=== PATIENT | male | born 1990 | race Caucasian/White ===

== ENCOUNTER 2019-04-05 04:37 | Inpatient (IN) | payer MEDICAID, OTHER ==
[~2019-04-05] VITALS: Ht 185.4 cm; Wt 87.0 kg
[2019-04-05] VITALS (9 sets, daily range): BP systolic 100–148; BP diastolic 60–97
[2019-04-05] MEDS ORDERED: OLAN10TA3 PO (05:03)
[2019-04-05] MEDS ORDERED: HYD25 PO (05:03)
[2019-04-05] MEDS ORDERED: METH10SO PO (05:03)
[2019-04-05] MEDS ORDERED: GABA-531 PO (05:03)
[2019-04-05] MEDS ORDERED: BUPR100 PO (05:03)
[2019-04-05] MEDS ORDERED: DIPH25TA19 PO (05:03)
[2019-04-05 05:50] LABS: EOSINOPHILS % (AUTO) 10.2 % (1.0-6.0); HEMATOCRIT 41.5 % (41-53); HEMOGLOBIN 14.5 g/dL (13.5-17.5); LYMPHOCYTES # (AUTO) 1.2 K/uL (1.0-4.8); LYMPHOCYTES % (AUTO) 21.9 % (22.0-44.0); MEAN CORPUSCULAR HEMOGLOBIN 29.4 pg (26.0-34.0); MEAN CORPUSCULAR HGB CONC 34.8 G/dL (31.0-37.0); MEAN CORPUSCULAR VOLUME 85 fL (80-100); MONOCYTES # (AUTO) 0.7 K/uL (0.1-1.0); MONOCYTES % (AUTO) 13.5 % (2.0-9.0); NEUTROPHILS # (AUTO) 2.8 K/uL (1.8-7.7); NEUTROPHILS % (AUTO) 53.4 % (40.0-70.0); PLATELET COUNT (AUTO) 185 K/uL (150-450); RED BLOOD CELL COUNT(AUTO) 4.92 MIL/uL (4.50-5.90)
[2019-04-05 05:59] LABS: ANION GAP 9 mmol/L (8-16); CALCIUM, TOTAL 9.4 mg/dL (8.8-10.5); CARBON DIOXIDE 28 mmol/L (22-29); CHLORIDE 104 mmol/L (98-107); GLOMERULAR FILTR. RATE CALC > 60 mL/min (>60); GLUCOSE,RANDOM 116 mg/dL (70-110); POTASSIUM 3.9 mmol/L (3.5-5.1); SODIUM SERUM 141 mmol/L (136-145); UREA NITROGEN, BLOOD 21 mg/dL (7-18)
[2019-04-05 06:01] LABS: AMPHET/METH SCREEN,URINE POSITIVE (NEGATIVE); BARBITURATE SCREEN, URINE NEGATIVE (NEGATIVE); BENZODIAZEPINES SCREEN,URINE NEGATIVE (NEGATIVE); CANNABINOID SCREEN,URINE NEGATIVE (NEGATIVE); COCAINE SCREEN,URINE NEGATIVE (NEGATIVE); METHADONE SCREEN, URINE NEGATIVE (NEGATIVE); OPIATE SCREEN,URINE POSITIVE (NEGATIVE); PHENCYCLIDINE SCREEN,URINE NEGATIVE (NEGATIVE)
[2019-04-05 06:04] LABS: ALANINE AMINOTRANSFERASE 124 U/L (12-78); ALBUMIN 3.7 g/dL (3.4-5.0); ALKALINE PHOSPHATASE 84 U/L (46-116); ASPARTATE AMINOTRANSFERASE 77 U/L (15-37); BILIRUBIN,TOTAL 0.8 mg/dL (0.1-1.0); TOTAL PROTEIN, SERUM 6.7 g/dL (6.4-8.2)
[2019-04-05] MEDS ORDERED: HALOPERIDOL 5 MG TABLET PO ONE (08:30)
[2019-04-05] MEDS ORDERED: LORazepam 1 MG TABLET PO ONE (08:30)
[2019-04-05] MEDS ORDERED: MIRT15TA6 PO (10:58)
[2019-04-05] MEDS ORDERED: MAG HYDROX/AL HYDROX/SIMETH ES 30 ML SUSPENSION UDCUP PO PRN (14:45)
[2019-04-05] MEDS ORDERED: CloNIDine HCL 0.1 MG TABLET PO PRN (14:45)
[2019-04-05] MEDS ORDERED: INFLUENZA VIRUS VACCINE QVS 2019-20 (3YR+)/PF 60 MCG/0.5 ML SYRINGE IM ONE (14:45)
[2019-04-05] MEDS ORDERED: HydrOXYzine PAMOATE 50 MG CAPSULE PO PRN (14:45)
[2019-04-05] MEDS ORDERED: IBUPROFEN 600 MG TABLET PO PRN (14:45)
[2019-04-05] MEDS: CloNIDine HCL 0.1 MG TABLET PO SCH ×2 (16:31→22:25)
[2019-04-05] MEDS: LORazepam 2 MG TABLET PO PRN (16:34)
[2019-04-06] VITALS (7 sets, daily range): BP systolic 105–137; BP diastolic 64–79
[2019-04-06] MEDS: CloNIDine HCL 0.1 MG TABLET PO SCH ×4 (06:28→21:34)
[2019-04-06] MEDS ORDERED: PETROLATUM,WHITE 28 GM JELLY TP PRN (07:45)
[2019-04-06] MEDS ORDERED: ACETAMINOPHEN 325 MG TABLET PO PRN (07:45)
[2019-04-06] MEDS ORDERED: CloNIDine HCL 0.1 MG TABLET PO PRN (07:45)
[2019-04-06] MEDS ORDERED: GuaiFENesin/D-METHORPHAN [SUGAR-FREE] 200-20MG/10 ML SYRUP UDCUP PO PRN (07:45)
[2019-04-06] MEDS ORDERED: DOCUSATE SODIUM 100 MG CAPSULE PO PRN (07:45)
[2019-04-06] MEDS ORDERED: MAG HYDROX/AL HYDROX/SIMETH ES 30 ML SUSPENSION UDCUP PO PRN (07:45)
[2019-04-06] MEDS ORDERED: MAGNESIUM HYDROXIDE SUSPENSION 30 ML UDCUP PO PRN (07:45)
[2019-04-06] MEDS ORDERED: ONDANSETRON HCL 4 MG TABLET PO PRN (07:45)
[2019-04-06] MEDS ORDERED: LOPERAMIDE HCL 2 MG CAPSULE PO PRN (07:45)
[2019-04-06] MEDS ORDERED: ALBUTEROL SULFATE HFA 90 MCG/PUFF 8 GM INHALER IH PRN (07:45)
[2019-04-06 08:27] LABS: CHOL/HDL RATIO 3.4 (4.2-7.3)
[2019-04-06] MEDS: LORazepam 2 MG TABLET PO PRN ×3 (08:38→21:35)
[2019-04-06] MEDS: HALOPERIDOL 5 MG TABLET PO PRN (08:39)
[2019-04-06] MEDS: BuPROPion HCL XL 150 MG ER TABLET PO SCH (10:01)
[2019-04-06] MEDS: METHADONE HCL 10 MG TABLET PO SCH (10:02)
[2019-04-06] MEDS: OLANZapine 10 MG TABLET PO SCH (21:35)
[2019-04-07 03:50] VITALS: BP 113/62
[2019-04-07] MEDS: CloNIDine HCL 0.1 MG TABLET PO SCH ×4 (06:25→21:48)
[2019-04-07 08:00] VITALS: BP 102/60
[2019-04-07] MEDS: METHADONE HCL 10 MG TABLET PO SCH (08:15)
[2019-04-07] MEDS: BuPROPion HCL XL 150 MG ER TABLET PO SCH (08:15)
[2019-04-07] MEDS: NICOTINE 14 MG/24 HOUR PATCH TD PRN (08:34)
[2019-04-07] MEDS: LORazepam 2 MG TABLET PO PRN ×3 (08:34→20:17)
[2019-04-07 16:26] VITALS: BP 119/64
[2019-04-07] MEDS: OLANZapine 10 MG TABLET PO SCH (20:16)
[2019-04-07 21:31] VITALS: BP 122/78
[2019-04-08 02:06] VITALS: BP 120/80
[2019-04-08 02:09] VITALS: BP 120/80
[2019-04-08 06:13] VITALS: BP 120/63
[2019-04-08] MEDS: CloNIDine HCL 0.1 MG TABLET PO SCH ×4 (06:13→20:39)
[2019-04-08] MEDS: BuPROPion HCL XL 150 MG ER TABLET PO SCH (08:11)
[2019-04-08] MEDS: METHADONE HCL 10 MG TABLET PO SCH (08:11)
[2019-04-08 08:40] VITALS: BP 118/63
[2019-04-08 08:42] VITALS: BP 118/63
[2019-04-08] MEDS: NICOTINE 14 MG/24 HOUR PATCH TD PRN (10:55)
[2019-04-08] MEDS: LORazepam 2 MG TABLET PO PRN ×2 (16:31→23:48)
[2019-04-08 17:00] VITALS: BP 100/65
[2019-04-08] MEDS: OLANZapine 10 MG TABLET PO SCH (20:21)
[2019-04-09] VITALS: BP 112/62
[2019-04-09 06:35] VITALS: BP 139/75
[2019-04-09] MEDS: CloNIDine HCL 0.1 MG TABLET PO SCH ×4 (06:35→21:41)
[2019-04-09] MEDS: METHADONE HCL 10 MG TABLET PO SCH (08:43)
[2019-04-09] MEDS: BuPROPion HCL XL 150 MG ER TABLET PO SCH (08:43)
[2019-04-09] MEDS: LORazepam 2 MG TABLET PO PRN ×2 (08:44→16:53)
[2019-04-09 09:44] VITALS: BP 126/76
[2019-04-09 09:46] VITALS: BP 126/76
[2019-04-09 16:30] VITALS: BP 116/67
[2019-04-09] MEDS: OLANZapine 10 MG TABLET PO SCH (19:53)
[2019-04-09] MEDS: HALOPERIDOL 5 MG TABLET PO PRN (19:54)
[2019-04-10 00:20] VITALS: BP 112/63
[2019-04-10 06:15] VITALS: BP 105/75
[2019-04-10] MEDS: CloNIDine HCL 0.1 MG TABLET PO SCH (06:19)
[2019-04-10] MEDS: METHADONE HCL 10 MG TABLET PO SCH (08:22)
[2019-04-10] MEDS: BuPROPion HCL XL 150 MG ER TABLET PO SCH (08:22)
[2019-04-10 10:33] VITALS: BP 124/65
[2019-04-10] MEDS: HALOPERIDOL 5 MG TABLET PO PRN ×2 (16:08→20:19)
[2019-04-10] MEDS: LORazepam 2 MG TABLET PO PRN ×2 (16:08→20:19)
[2019-04-10 16:15] VITALS: BP 120/64
[2019-04-10] MEDS: OLANZapine 10 MG TABLET PO SCH (20:20)
[2019-04-11] MEDS: BuPROPion HCL XL 150 MG ER TABLET PO SCH (08:15)
[2019-04-11] MEDS: METHADONE HCL 10 MG TABLET PO SCH (08:16)
[2019-04-11 08:38] VITALS: BP 127/58
[2019-04-11] MEDS: LORazepam 2 MG TABLET PO PRN ×2 (13:52→19:42)
[2019-04-11 17:01] VITALS: BP 128/75
[2019-04-11] MEDS: HALOPERIDOL 5 MG TABLET PO PRN (19:42)
[2019-04-11] MEDS: OLANZapine 10 MG TABLET PO SCH (20:12)
[2019-04-12 00:30] VITALS: BP 120/90
[2019-04-12] MEDS: METHADONE HCL 10 MG TABLET PO SCH (08:38)
[2019-04-12] MEDS: BuPROPion HCL XL 150 MG ER TABLET PO SCH (08:39)
[2019-04-12] MEDS: LORazepam 2 MG TABLET PO PRN ×3 (08:40→20:35)
[2019-04-12 08:43] VITALS: BP 129/74
[2019-04-12 16:15] VITALS: BP 113/74
[2019-04-12] MEDS: OLANZapine 10 MG TABLET PO SCH (20:07)
[2019-04-12] MEDS: HALOPERIDOL 5 MG TABLET PO PRN (20:35)
[2019-04-13 01:45] VITALS: BP 111/81
[2019-04-13] MEDS: METHADONE HCL 10 MG TABLET PO SCH (08:09)
[2019-04-13] MEDS: BuPROPion HCL XL 150 MG ER TABLET PO SCH (08:09)
[2019-04-13] MEDS: LORazepam 2 MG TABLET PO PRN ×2 (08:55→16:07)
[2019-04-13 17:02] VITALS: BP 113/64
[2019-04-13] MEDS: ZOLPIDEM TARTRATE 10 MG TABLET PO PRN (20:01)
[2019-04-13] MEDS: OLANZapine 10 MG TABLET PO SCH (20:01)
[2019-04-14] MEDS: BuPROPion HCL XL 150 MG ER TABLET PO SCH (08:09)
[2019-04-14] MEDS: METHADONE HCL 10 MG TABLET PO SCH (08:09)
[2019-04-14] MEDS: LORazepam 2 MG TABLET PO PRN (08:10)
[2019-04-14 09:43] VITALS: BP 129/64
[2019-04-14] MEDS: HALOPERIDOL 5 MG TABLET PO PRN (16:57)
[2019-04-14] MEDS: LORazepam 1 MG TABLET PO PRN (16:57)
[2019-04-14] MEDS: IBUPROFEN 400 MG TABLET PO PRN (16:57)
[2019-04-14 19:32] VITALS: BP 123/67
[2019-04-14] MEDS: OLANZapine 10 MG TABLET PO SCH (20:06)
[2019-04-15 01:45] VITALS: BP 128/83
[2019-04-15] MEDS: LORazepam 1 MG TABLET PO PRN ×3 (01:49→16:49)
[2019-04-15] MEDS: HALOPERIDOL 5 MG TABLET PO PRN (01:49)
[2019-04-15] MEDS: METHADONE HCL 10 MG TABLET PO SCH (08:16)
[2019-04-15] MEDS: BuPROPion HCL XL 150 MG ER TABLET PO SCH (08:16)
[2019-04-15 08:50] VITALS: BP 126/81
[2019-04-15] MEDS: NICOTINE 14 MG/24 HOUR PATCH TD PRN (13:06)
[2019-04-15 16:30] VITALS: BP 125/65
[2019-04-15 16:57] VITALS: BP 123/70
[2019-04-15] MEDS: OLANZapine 10 MG TABLET PO SCH (20:09)
[2019-04-16 02:40] VITALS: BP 122/68
[2019-04-16] MEDS: BuPROPion HCL XL 150 MG ER TABLET PO SCH (08:13)
[2019-04-16] MEDS: METHADONE HCL 10 MG TABLET PO SCH (08:14)
[2019-04-16 08:30] VITALS: BP 144/83
[2019-04-16] MEDS: NICOTINE 14 MG/24 HOUR PATCH TD PRN (09:56)
[2019-04-16] MEDS: IBUPROFEN 400 MG TABLET PO PRN (16:20)
[2019-04-16] MEDS: LORazepam 1 MG TABLET PO PRN (16:21)
[2019-04-16 17:46] VITALS: BP 116/67
[2019-04-16] MEDS: OLANZapine 10 MG TABLET PO SCH (20:36)
[2019-04-16] MEDS: ZOLPIDEM TARTRATE 10 MG TABLET PO PRN (22:16)
[2019-04-17] MEDS: METHADONE HCL 10 MG TABLET PO SCH (07:57)
[2019-04-17] MEDS: BuPROPion HCL XL 150 MG ER TABLET PO SCH (07:58)
[2019-04-17] MEDS ORDERED: BUPR450T3 PO (08:19)
[2019-04-17] MEDS ORDERED: OLAN10TA3 PO ×2 (08:20→08:25)
[2019-04-17] MEDS ORDERED: BUPR75 PO (08:25)
[2019-04-19] MEDS ORDERED: METHADONE HCL 10 MG TABLET PO SCH (09:00)
[2019-04-22] MEDS ORDERED: METHADONE HCL 10 MG TABLET PO SCH (09:00)
[2019-04-25] MEDS ORDERED: METHADONE HCL 10 MG TABLET PO SCH (09:00)
== END 2019-04-17 10:15 | disposition home or self-care (01) | DRG 885 ==
LOC: EMS 04:37 → 3EI 10:56
PROVIDERS: ADMIT Psychiatry & Neurology Child & Adolescent Psychiatry; ATTEND Psychiatry & Neurology Child & Adolescent Psychiatry
DX: F25.0 Schizoaffective disorder, bipolar type (principal); F11.20 Opioid dependence, uncomplicated; R45.851 Suicidal ideations; F17.200 Nicotine dependence, unspecified, uncomplicated; I10 Essential (primary) hypertension; F19.10 Other psychoactive substance abuse, uncomplicated; Z81.3 Family history of other psychoactive substance abuse and dependence; Z71.6 Tobacco abuse counseling; Z91.14 Patient's other noncompliance with medication regimen
CPT/HCPCS: 87081; G0480

== ENCOUNTER 2019-06-01 11:16 | Inpatient (IN) | payer MEDICAID ==
[~2019-06-01] VITALS: Ht 185.4 cm; Wt 84.5 kg
[~2019-06-01 11:16] MED LIST: BUPR450T3 PO; OLAN10TA3 PO
[2019-06-01 13:54] VITALS: BP 122/68
[2019-06-01] MEDS: LORazepam 2 MG TABLET PO PRN ×2 (14:56→20:07)
[2019-06-01 16:00] VITALS: BP 134/78
[2019-06-02 00:08] VITALS: BP 115/60
[2019-06-02] MEDS: HALOPERIDOL 5 MG TABLET PO PRN ×2 (03:02→20:14)
[2019-06-02] MEDS: LORazepam 2 MG TABLET PO PRN ×3 (03:02→17:11)
[2019-06-02] MEDS: ZOLPIDEM TARTRATE 10 MG TABLET PO PRN ×2 (03:02→20:14)
[2019-06-02 08:20] VITALS: BP 108/64
[2019-06-02] MEDS: OLANZapine 10 MG TABLET PO SCH (09:02)
[2019-06-02] MEDS: BuPROPion HCL XL 150 MG ER TABLET PO SCH (09:10)
[2019-06-02] MEDS ORDERED: BuPROPion HCL XL 150 MG ER TABLET PO SCH (09:45)
[2019-06-02] MEDS ORDERED: NICOTINE 14 MG/24 HOUR PATCH TD PRN (13:15)
[2019-06-02] MEDS ORDERED: DOCUSATE SODIUM 100 MG CAPSULE PO PRN (13:15)
[2019-06-02] MEDS ORDERED: MAGNESIUM HYDROXIDE SUSPENSION 30 ML UDCUP PO PRN (13:15)
[2019-06-02] MEDS ORDERED: ALBUTEROL SULFATE HFA 90 MCG/PUFF 8 GM INHALER IH PRN (13:15)
[2019-06-02] MEDS ORDERED: IBUPROFEN 400 MG TABLET PO PRN (13:15)
[2019-06-02] MEDS ORDERED: CloNIDine HCL 0.1 MG TABLET PO PRN (13:15)
[2019-06-02] MEDS ORDERED: GuaiFENesin/D-METHORPHAN [SUGAR-FREE] 200-20MG/10 ML SYRUP UDCUP PO PRN (13:15)
[2019-06-02] MEDS ORDERED: ONDANSETRON HCL 4 MG TABLET PO PRN (13:15)
[2019-06-02] MEDS ORDERED: MAG HYDROX/AL HYDROX/SIMETH ES 30 ML SUSPENSION UDCUP PO PRN (13:15)
[2019-06-02] MEDS ORDERED: ACETAMINOPHEN 325 MG TABLET PO PRN (13:15)
[2019-06-02] MEDS ORDERED: LOPERAMIDE HCL 2 MG CAPSULE PO PRN (13:15)
[2019-06-02] MEDS ORDERED: PETROLATUM,WHITE 28 GM JELLY TP PRN (13:15)
[2019-06-02 16:00] VITALS: BP 124/68
[2019-06-02] MEDS ORDERED: OLANZapine 10 MG TABLET PO SCH (21:00)
[2019-06-03 05:39] VITALS: BP 114/85
[2019-06-03 07:59] LABS: APPEARANCE,URINE CLEAR (CLEAR); BILIRUBIN,URINE NEGATIVE (NEGATIVE); GLUCOSE, URINE (UA) NEGATIVE (NEGATIVE); KETONES,URINE NEGATIVE (NEGATIVE); LEUKOCYTE ESTERASE ,URINE NEGATIVE (NEGATIVE); NITRATE,URINE NEGATIVE (NEGATIVE); OCCULT BLOOD,URINE NEGATIVE (NEGATIVE); PROTEIN,URINE NEGATIVE (NEGATIVE)
[2019-06-03 08:02] VITALS: BP 126/71
[2019-06-03 08:05] LABS: AMPHET/METH SCREEN,URINE POSITIVE (NEGATIVE); BARBITURATE SCREEN, URINE NEGATIVE (NEGATIVE); BENZODIAZEPINES SCREEN,URINE NEGATIVE (NEGATIVE); CANNABINOID SCREEN,URINE NEGATIVE (NEGATIVE); COCAINE SCREEN,URINE NEGATIVE (NEGATIVE); METHADONE SCREEN, URINE NEGATIVE (NEGATIVE); OPIATE SCREEN,URINE NEGATIVE (NEGATIVE); PHENCYCLIDINE SCREEN,URINE NEGATIVE (NEGATIVE)
[2019-06-03] MEDS: BuPROPion HCL XL 150 MG ER TABLET PO SCH (08:29)
[2019-06-03] MEDS: OLANZapine 10 MG TABLET PO SCH (08:29)
[2019-06-03 09:57] VITALS: BP 145/93
[2019-06-03] MEDS: BUPRENORPHINE HCL/NALOXONE HCL 8-2 MG SUBLINGUAL TABLET SL SCH (12:23)
[2019-06-03 16:24] VITALS: BP 138/59
[2019-06-03] MEDS: HALOPERIDOL 5 MG TABLET PO PRN (17:14)
[2019-06-03] MEDS: LORazepam 2 MG TABLET PO PRN (17:14)
[2019-06-03] MEDS: ZOLPIDEM TARTRATE 10 MG TABLET PO PRN (20:27)
[2019-06-04 00:24] VITALS: BP 132/68
[2019-06-04 08:17] VITALS: BP 115/45
[2019-06-04 08:28] VITALS: BP 127/90
[2019-06-04] MEDS: BuPROPion HCL XL 150 MG ER TABLET PO SCH (08:28)
[2019-06-04] MEDS: OLANZapine 10 MG TABLET PO SCH (08:28)
[2019-06-04] MEDS: BUPRENORPHINE HCL/NALOXONE HCL 8-2 MG SUBLINGUAL TABLET SL SCH (08:28)
[2019-06-04] MEDS ORDERED: BUPRENORPHINE HCL/NALOXONE HCL 8-2 MG SUBLINGUAL TABLET SL SCH (09:00)
[2019-06-04] MEDS: LORazepam 2 MG TABLET PO PRN ×2 (12:51→20:01)
[2019-06-04 16:33] VITALS: BP 118/61
[2019-06-04] MEDS: HALOPERIDOL 5 MG TABLET PO PRN (20:01)
[2019-06-04] MEDS: ZOLPIDEM TARTRATE 10 MG TABLET PO PRN (21:25)
[2019-06-05 00:21] VITALS: BP 136/77
[2019-06-05 08:15] VITALS: BP 115/87
[2019-06-05] MEDS: BuPROPion HCL XL 150 MG ER TABLET PO SCH (08:18)
[2019-06-05] MEDS: OLANZapine 10 MG TABLET PO SCH (08:19)
[2019-06-05] MEDS: BUPRENORPHINE HCL/NALOXONE HCL 8-2 MG SUBLINGUAL TABLET SL SCH (08:19)
[2019-06-05] MEDS: LORazepam 2 MG TABLET PO PRN ×2 (12:59→18:08)
[2019-06-05 16:15] VITALS: BP 125/80
[2019-06-05] MEDS: HALOPERIDOL 5 MG TABLET PO PRN (18:09)
[2019-06-05] MEDS: ZOLPIDEM TARTRATE 10 MG TABLET PO PRN (20:47)
[2019-06-06 01:02] VITALS: BP 128/55
[2019-06-06] MEDS: BuPROPion HCL XL 150 MG ER TABLET PO SCH (08:05)
[2019-06-06] MEDS: BUPRENORPHINE HCL/NALOXONE HCL 8-2 MG SUBLINGUAL TABLET SL SCH (08:06)
[2019-06-06] MEDS: OLANZapine 10 MG TABLET PO SCH ×2 (08:07→20:21)
[2019-06-06 08:20] VITALS: BP 118/76
[2019-06-06] MEDS: LORazepam 2 MG TABLET PO PRN ×2 (09:35→16:38)
[2019-06-06 16:48] VITALS: BP 121/65
[2019-06-06] MEDS: HALOPERIDOL 5 MG TABLET PO PRN (17:44)
[2019-06-06] MEDS: ZOLPIDEM TARTRATE 10 MG TABLET PO PRN (20:21)
[2019-06-07 00:10] VITALS: BP 120/72
[2019-06-07 04:49] VITALS: BP 112/51
[2019-06-07 08:11] VITALS: BP 136/60
[2019-06-07] MEDS: BuPROPion HCL XL 150 MG ER TABLET PO SCH (08:18)
[2019-06-07] MEDS: BUPRENORPHINE HCL/NALOXONE HCL 8-2 MG SUBLINGUAL TABLET SL SCH (08:18)
[2019-06-07] MEDS: LORazepam 2 MG TABLET PO PRN ×2 (09:35→16:21)
[2019-06-07 16:00] VITALS: BP 127/70
[2019-06-07] MEDS: HALOPERIDOL 5 MG TABLET PO PRN (16:21)
[2019-06-07] MEDS: OLANZapine 10 MG TABLET PO SCH (20:02)
[2019-06-08 00:57] VITALS: BP 118/73
[2019-06-08] MEDS: ZOLPIDEM TARTRATE 10 MG TABLET PO PRN ×2 (01:20→21:37)
[2019-06-08] MEDS: BUPRENORPHINE HCL/NALOXONE HCL 8-2 MG SUBLINGUAL TABLET SL SCH (08:02)
[2019-06-08] MEDS: BuPROPion HCL XL 150 MG ER TABLET PO SCH (08:02)
[2019-06-08 08:20] VITALS: BP 120/60
[2019-06-08] MEDS: LORazepam 2 MG TABLET PO PRN ×2 (09:22→15:43)
[2019-06-08 17:25] VITALS: BP 125/63
[2019-06-08] MEDS: OLANZapine 10 MG TABLET PO SCH (20:02)
[2019-06-09 01:36] VITALS: BP 122/68
[2019-06-09] MEDS: BuPROPion HCL XL 150 MG ER TABLET PO SCH (08:00)
[2019-06-09] MEDS: BUPRENORPHINE HCL/NALOXONE HCL 8-2 MG SUBLINGUAL TABLET SL SCH (08:00)
[2019-06-09 08:06] VITALS: BP 115/70
[2019-06-09] MEDS: LORazepam 2 MG TABLET PO PRN ×2 (09:36→16:01)
[2019-06-09 16:11] VITALS: BP 129/76
[2019-06-09] MEDS: OLANZapine 10 MG TABLET PO SCH (20:01)
[2019-06-09] MEDS: ZOLPIDEM TARTRATE 10 MG TABLET PO PRN (22:22)
[2019-06-10 01:03] VITALS: BP 117/73
[2019-06-10] MEDS: BuPROPion HCL XL 150 MG ER TABLET PO SCH (08:14)
[2019-06-10] MEDS: BUPRENORPHINE HCL/NALOXONE HCL 8-2 MG SUBLINGUAL TABLET SL SCH (08:15)
[2019-06-10 08:54] VITALS: BP 123/61
[2019-06-10] MEDS: LORazepam 2 MG TABLET PO PRN (09:25)
[2019-06-10] MEDS ORDERED: BUPR1TAB32 SL (10:54)
[2019-06-10] MEDS ORDERED: BUPR-47 PO (10:54)
[2019-06-10] MEDS ORDERED: OLAN10TA20 PO (10:54)
== END 2019-06-10 14:41 | disposition home or self-care (01) | DRG 750 ==
LOC: B3A 14:34 → B2S 06-03 10:08
DX: F25.1 Schizoaffective disorder, depressive type (principal); R45.851 Suicidal ideations; F11.20 Opioid dependence, uncomplicated; F15.10 Other stimulant abuse, uncomplicated; I10 Essential (primary) hypertension; F41.9 Anxiety disorder, unspecified; F19.10 Other psychoactive substance abuse, uncomplicated; F10.10 Alcohol abuse, uncomplicated; Y90.9 Presence of alcohol in blood, level not specified; Z79.899 Other long term (current) drug therapy; Z91.5 Personal history of self-harm
CPT/HCPCS: 80307; 87081

== ENCOUNTER 2019-07-17 17:58 | Emergency (ER) | payer MEDICAID ==
[~2019-07-17 17:58] MED LIST changes: +BUPR-47 PO; +BUPR1TAB32 SL; -BUPR450T3 PO; +OLAN10TA20 PO; -OLAN10TA3 PO
[2019-07-17] MEDS ORDERED: BUPR75 PO (19:25)
[2019-07-17] MEDS ORDERED: CHLO100T24 PO (19:25)
[2019-07-17] MEDS ORDERED: BUPR1FIL3 SL (19:26)
== END 2019-07-17 18:18 | disposition left against medical advice (07) ==
LOC: EMS 17:58
DX: Z00.00 Encounter for general adult medical examination without abnormal findings (principal); Z53.21 Procedure and treatment not carried out due to patient leaving prior to being seen by health care provider

== ENCOUNTER 2019-07-17 19:06 | Inpatient (IN) | payer MEDICAID ==
[~2019-07-17] VITALS: Ht 185.4 cm; Wt 83.3 kg
[2019-07-17] MEDS ORDERED: CHLO100T24 PO (19:25)
[2019-07-17] MEDS ORDERED: BUPR75 PO (19:25)
[2019-07-17] MEDS ORDERED: BUPR1FIL3 SL (19:26)
[2019-07-17 20:32] LABS: AMPHET/METH SCREEN,URINE NEGATIVE (NEGATIVE); BARBITURATE SCREEN, URINE NEGATIVE (NEGATIVE); BENZODIAZEPINES SCREEN,URINE NEGATIVE (NEGATIVE); CANNABINOID SCREEN,URINE NEGATIVE (NEGATIVE); COCAINE SCREEN,URINE NEGATIVE (NEGATIVE); METHADONE SCREEN, URINE NEGATIVE (NEGATIVE); OPIATE SCREEN,URINE NEGATIVE (NEGATIVE)
[2019-07-17 20:40] LABS: BASOPHILS % (AUTO) 0.7 % (0.0-2.0); EOSINOPHILS % (AUTO) 2.6 % (1.0-6.0); HEMATOCRIT 40.3 % (41-53); HEMOGLOBIN 13.9 g/dL (13.5-17.5); LYMPHOCYTES # (AUTO) 1.4 K/uL (1.0-4.8); MEAN CORPUSCULAR HEMOGLOBIN 28.5 pg (26.0-34.0); MEAN CORPUSCULAR HGB CONC 34.5 G/dL (31.0-37.0); MEAN CORPUSCULAR VOLUME 83 fL (80-100); MONOCYTES # (AUTO) 0.4 K/uL (0.1-1.0); MONOCYTES % (AUTO) 5.9 % (2.0-9.0); NEUTROPHILS # (AUTO) 4.1 K/uL (1.8-7.7); NEUTROPHILS % (AUTO) 67.8 % (40.0-70.0); PLATELET COUNT (AUTO) 184 K/uL (150-450); RED BLOOD CELL COUNT(AUTO) 4.87 MIL/uL (4.50-5.90); RED CELL DISTRIBUTION WIDTH 13.5 % (11.5-14.5)
[2019-07-17] MEDS ORDERED: ZOLPIDEM TARTRATE 10 MG TABLET PO PRN (20:45)
[2019-07-17 20:50] LABS: ANION GAP 7 mmol/L (8-16); CALCIUM, TOTAL 9.1 mg/dL (8.8-10.5); CARBON DIOXIDE 28 mmol/L (22-29); CHLORIDE 104 mmol/L (98-107); CREATININE 1.14 mg/dL (0.60-1.30); GLOMERULAR FILTR. RATE CALC > 60 mL/min (>60); GLUCOSE,RANDOM 111 mg/dL (70-110); POTASSIUM 4.5 mmol/L (3.5-5.1); SODIUM SERUM 139 mmol/L (136-145); UREA NITROGEN, BLOOD 17 mg/dL (7-18)
[2019-07-17 20:56] LABS: ALANINE AMINOTRANSFERASE 186 U/L (12-78); ALBUMIN 3.9 g/dL (3.4-5.0); ALKALINE PHOSPHATASE 79 U/L (46-116); ASPARTATE AMINOTRANSFERASE 48 U/L (15-37); BILIRUBIN,TOTAL 0.5 mg/dL (0.1-1.0)
[2019-07-17 21:12] LABS: PHENCYCLIDINE SCREEN,URINE NEGATIVE (NEGATIVE)
[2019-07-18 00:16] VITALS: BP 126/83
[2019-07-18] MEDS: LORazepam 2 MG TABLET PO PRN ×2 (00:17→12:33)
[2019-07-18 08:08] VITALS: BP 106/77
[2019-07-18 08:41] LABS: CHOL/HDL RATIO 3.3 (4.2-7.3)
[2019-07-18] MEDS ORDERED: ALBUTEROL SULFATE HFA 90 MCG/PUFF 8 GM INHALER IH PRN (08:45)
[2019-07-18] MEDS ORDERED: LOPERAMIDE HCL 2 MG CAPSULE PO PRN (08:45)
[2019-07-18] MEDS ORDERED: ONDANSETRON HCL 4 MG TABLET PO PRN (08:45)
[2019-07-18] MEDS ORDERED: MAG HYDROX/AL HYDROX/SIMETH ES 30 ML SUSPENSION UDCUP PO PRN (08:45)
[2019-07-18] MEDS ORDERED: MAGNESIUM HYDROXIDE SUSPENSION 30 ML UDCUP PO PRN (08:45)
[2019-07-18] MEDS ORDERED: BACITRACIN 28.4 GM OINTMENT TP PRN (08:45)
[2019-07-18] MEDS ORDERED: CloNIDine HCL 0.1 MG TABLET PO PRN (08:45)
[2019-07-18] MEDS ORDERED: DOCUSATE SODIUM 100 MG CAPSULE PO PRN (08:45)
[2019-07-18] MEDS ORDERED: ACETAMINOPHEN 325 MG TABLET PO PRN (08:45)
[2019-07-18] MEDS ORDERED: PETROLATUM,WHITE 28 GM JELLY TP PRN (08:45)
[2019-07-18] MEDS ORDERED: BENZOCAINE/MENTHOL LOZENGE MM PRN (08:45)
[2019-07-18] MEDS ORDERED: IBUPROFEN 600 MG TABLET PO PRN (08:45)
[2019-07-18] MEDS ORDERED: OMEPRAZOLE 20 MG CAPSULE PO PRN (08:45)
[2019-07-18] MEDS: BuPROPion HCL XL 150 MG ER TABLET PO SCH (12:31)
[2019-07-18] MEDS: HALOPERIDOL 5 MG TABLET PO PRN (13:36)
[2019-07-18 16:42] VITALS: BP 106/57
[2019-07-18] MEDS: OLANZapine 10 MG TABLET PO SCH (20:19)
[2019-07-19] VITALS: BP 96/59
[2019-07-19] MEDS ORDERED: PNEUMOCOCCAL VACCINE POLYVALENT 0.5 ML VIAL [PPSV23] IM ONE (04:30)
[2019-07-19 08:09] VITALS: BP 108/62
[2019-07-19] MEDS: BuPROPion HCL XL 150 MG ER TABLET PO SCH (08:25)
[2019-07-19] MEDS: LORazepam 2 MG TABLET PO PRN (08:26)
[2019-07-19] MEDS ORDERED: BUPRENORPHINE HCL/NALOXONE HCL 8-2 MG SUBLINGUAL TABLET SL ONE (11:45)
[2019-07-19] MEDS: HALOPERIDOL 5 MG TABLET PO PRN (17:05)
[2019-07-19 17:52] VITALS: BP 101/68
[2019-07-19] MEDS: OLANZapine 10 MG TABLET PO SCH (20:08)
[2019-07-20 06:02] VITALS: BP 110/73
[2019-07-20 08:26] VITALS: BP 103/60
[2019-07-20 10:10] VITALS: BP 121/62
[2019-07-20] MEDS: BuPROPion HCL XL 150 MG ER TABLET PO SCH (10:10)
[2019-07-20] MEDS: BUPRENORPHINE HCL/NALOXONE HCL 8-2 MG SUBLINGUAL TABLET SL SCH (10:10)
[2019-07-20 16:11] VITALS: BP 117/56
[2019-07-20] MEDS: HALOPERIDOL 5 MG TABLET PO PRN (16:18)
[2019-07-20] MEDS: LORazepam 2 MG TABLET PO PRN (16:59)
[2019-07-20] MEDS: OLANZapine 10 MG TABLET PO SCH (20:07)
[2019-07-21 05:10] VITALS: BP 120/65
[2019-07-21 08:06] VITALS: BP 110/51
[2019-07-21] MEDS: BuPROPion HCL XL 150 MG ER TABLET PO SCH (08:54)
[2019-07-21] MEDS: BUPRENORPHINE HCL/NALOXONE HCL 8-2 MG SUBLINGUAL TABLET SL SCH (08:54)
[2019-07-21] MEDS ORDERED: BUPR-47 PO (10:43)
[2019-07-21] MEDS ORDERED: OLAN10TA20 PO (10:43)
== END 2019-07-21 13:15 | disposition home or self-care (01) | DRG 750 ==
LOC: EMS 19:08 → B2S 22:50
PROVIDERS: ADMIT Psychiatry & Neurology Child & Adolescent Psychiatry; ATTEND Psychiatry & Neurology Psychiatry
DX: F25.1 Schizoaffective disorder, depressive type (principal); R45.851 Suicidal ideations; F11.20 Opioid dependence, uncomplicated; Z91.14 Patient's other noncompliance with medication regimen; I10 Essential (primary) hypertension; Z79.899 Other long term (current) drug therapy; Z87.891 Personal history of nicotine dependence; Z28.21 Immunization not carried out because of patient refusal
CPT/HCPCS: G0480

== ENCOUNTER 2019-08-09 19:18 | Inpatient (IN) | payer MEDICAID ==
[~2019-08-09] VITALS: Ht 188 cm; Wt 85.0 kg
[~2019-08-09 19:18] MED LIST changes: -BUPR1TAB32 SL
[2019-08-09 21:56] LABS: BASOPHILS % (AUTO) 0.6 % (0.0-2.0); EOSINOPHILS % (AUTO) 3.9 % (1.0-6.0); HEMATOCRIT 41.4 % (41-53); HEMOGLOBIN 14.3 g/dL (13.5-17.5); LYMPHOCYTES # (AUTO) 1.2 K/uL (1.0-4.8); LYMPHOCYTES % (AUTO) 22.5 % (22.0-44.0); MEAN CORPUSCULAR HEMOGLOBIN 29.1 pg (26.0-34.0); MEAN CORPUSCULAR HGB CONC 34.5 G/dL (31.0-37.0); MEAN CORPUSCULAR VOLUME 84 fL (80-100); MONOCYTES # (AUTO) 0.4 K/uL (0.1-1.0); NEUTROPHILS # (AUTO) 3.4 K/uL (1.8-7.7); PLATELET COUNT (AUTO) 177 K/uL (150-450); RED BLOOD CELL COUNT(AUTO) 4.91 MIL/uL (4.50-5.90); RED CELL DISTRIBUTION WIDTH 13.7 % (11.5-14.5)
[2019-08-09] MEDS ORDERED: BUSP5TAB20 PO (21:59)
[2019-08-09] MEDS ORDERED: HALO2 PO (21:59)
[2019-08-09] MEDS ORDERED: GABA-1181 PO (21:59)
[2019-08-09] MEDS ORDERED: BUPR1FIL3 SL (21:59)
[2019-08-09 22:06] LABS: ANION GAP 9 mmol/L (8-16); CALCIUM, TOTAL 9.7 mg/dL (8.8-10.5); CARBON DIOXIDE 27 mmol/L (22-29); CHLORIDE 104 mmol/L (98-107); CREATININE 1.13 mg/dL (0.60-1.30); GLOMERULAR FILTR. RATE CALC > 60 mL/min (>60); GLUCOSE,RANDOM 106 mg/dL (70-110); POTASSIUM 4.4 mmol/L (3.5-5.1); SODIUM SERUM 140 mmol/L (136-145); UREA NITROGEN, BLOOD 13 mg/dL (7-18)
[2019-08-09 22:11] LABS: ALANINE AMINOTRANSFERASE 939 U/L (12-78); ALBUMIN 4.4 g/dL (3.4-5.0); ALKALINE PHOSPHATASE 109 U/L (46-116); ASPARTATE AMINOTRANSFERASE 427 U/L (15-37); BILIRUBIN,TOTAL 1.1 mg/dL (0.1-1.0); TOTAL PROTEIN, SERUM 7.7 g/dL (6.4-8.2)
[2019-08-09 22:20] LABS: AMPHET/METH SCREEN,URINE NEGATIVE (NEGATIVE); BARBITURATE SCREEN, URINE NEGATIVE (NEGATIVE); BENZODIAZEPINES SCREEN,URINE NEGATIVE (NEGATIVE); CANNABINOID SCREEN,URINE NEGATIVE (NEGATIVE); COCAINE SCREEN,URINE NEGATIVE (NEGATIVE); METHADONE SCREEN, URINE NEGATIVE (NEGATIVE); OPIATE SCREEN,URINE NEGATIVE (NEGATIVE); PHENCYCLIDINE SCREEN,URINE NEGATIVE (NEGATIVE)
[2019-08-10] MEDS: ZOLPIDEM TARTRATE 10 MG TABLET PO PRN ×2 (00:47→21:30)
[2019-08-10] MEDS: HALOPERIDOL 5 MG TABLET PO PRN ×3 (00:47→21:00)
[2019-08-10] MEDS: LORazepam 2 MG TABLET PO PRN ×3 (00:47→21:00)
[2019-08-10 01:18] VITALS: BP 136/91
[2019-08-10] MEDS ORDERED: PNEUMOCOCCAL VACCINE POLYVALENT 0.5 ML VIAL [PPSV23] IM ONE (01:45)
[2019-08-10 06:47] LABS: APPEARANCE,URINE CLEAR (CLEAR); BILIRUBIN,URINE NEGATIVE (NEGATIVE); GLUCOSE, URINE (UA) NEGATIVE (NEGATIVE); KETONES,URINE NEGATIVE (NEGATIVE); LEUKOCYTE ESTERASE ,URINE NEGATIVE (NEGATIVE); NITRATE,URINE NEGATIVE (NEGATIVE); OCCULT BLOOD,URINE NEGATIVE (NEGATIVE); PH,URINE 6.5 (5.0-8.0); PROTEIN,URINE NEGATIVE (NEGATIVE); UROBILINOGEN,URINE 0.2 mg/dL (<=1.0)
[2019-08-10] MEDS ORDERED: ONDANSETRON HCL 4 MG TABLET PO PRN (07:00)
[2019-08-10] MEDS ORDERED: MAG HYDROX/AL HYDROX/SIMETH ES 30 ML SUSPENSION UDCUP PO PRN (07:00)
[2019-08-10] MEDS ORDERED: BACITRACIN 28.4 GM OINTMENT TP PRN (07:00)
[2019-08-10] MEDS ORDERED: LOPERAMIDE HCL 2 MG CAPSULE PO PRN (07:00)
[2019-08-10] MEDS ORDERED: OMEPRAZOLE 20 MG CAPSULE PO PRN (07:00)
[2019-08-10] MEDS ORDERED: PETROLATUM,WHITE 28 GM JELLY TP PRN (07:00)
[2019-08-10] MEDS ORDERED: MAGNESIUM HYDROXIDE SUSPENSION 30 ML UDCUP PO PRN (07:00)
[2019-08-10] MEDS ORDERED: BENZOCAINE/MENTHOL LOZENGE MM PRN (07:00)
[2019-08-10] MEDS ORDERED: ACETAMINOPHEN 325 MG TABLET PO PRN (07:00)
[2019-08-10] MEDS ORDERED: DOCUSATE SODIUM 100 MG CAPSULE PO PRN (07:00)
[2019-08-10] MEDS ORDERED: IBUPROFEN 600 MG TABLET PO PRN (07:00)
[2019-08-10] MEDS ORDERED: CloNIDine HCL 0.1 MG TABLET PO PRN (07:00)
[2019-08-10] MEDS ORDERED: ALBUTEROL SULFATE HFA 90 MCG/PUFF 8 GM INHALER IH PRN (07:00)
[2019-08-10 07:56] LABS: CHOL/HDL RATIO 3.4 (4.2-7.3)
[2019-08-10] MEDS: NICOTINE 21 MG/24 HOUR PATCH TD SCH ×2 (09:00→13:46)
[2019-08-10 09:29] VITALS: BP 138/77
[2019-08-10 16:00] VITALS: BP 104/71
[2019-08-10] MEDS: OLANZapine 10 MG TABLET PO SCH (20:55)
[2019-08-11 08:00] VITALS: BP 107/55
[2019-08-11] MEDS: BuPROPion HCL 150 MG SR TABLET PO SCH (10:00)
[2019-08-11] MEDS: HALOPERIDOL 5 MG TABLET PO PRN ×3 (11:54→22:34)
[2019-08-11] MEDS: LORazepam 2 MG TABLET PO PRN ×3 (11:54→22:34)
[2019-08-11 16:00] VITALS: BP 129/67
[2019-08-11] MEDS: OLANZapine 10 MG TABLET PO SCH (20:54)
[2019-08-12 00:20] VITALS: BP 101/62
[2019-08-12 08:00] VITALS: BP 127/69
[2019-08-12] MEDS: BuPROPion HCL 150 MG SR TABLET PO SCH (08:51)
[2019-08-12] MEDS: LORazepam 2 MG TABLET PO PRN ×2 (08:51→15:56)
[2019-08-12] MEDS: NICOTINE 21 MG/24 HOUR PATCH TD SCH (09:00)
[2019-08-12] MEDS: BUPRENORPHINE HCL/NALOXONE HCL 8-2 MG SUBLINGUAL TABLET SL SCH (15:17)
[2019-08-12 16:00] VITALS: BP 132/82
[2019-08-12] MEDS: OLANZapine 10 MG TABLET PO SCH (20:16)
[2019-08-13 00:43] VITALS: BP 119/67
[2019-08-13] MEDS: ZOLPIDEM TARTRATE 10 MG TABLET PO PRN (01:31)
[2019-08-13] MEDS: BuPROPion HCL 150 MG SR TABLET PO SCH (08:13)
[2019-08-13] MEDS: BUPRENORPHINE HCL/NALOXONE HCL 8-2 MG SUBLINGUAL TABLET SL SCH (08:13)
[2019-08-13] MEDS: NICOTINE 21 MG/24 HOUR PATCH TD SCH (09:00)
[2019-08-13] MEDS: LORazepam 2 MG TABLET PO PRN ×3 (09:04→20:41)
[2019-08-13 10:29] VITALS: BP 119/60
[2019-08-13 16:00] VITALS: BP 129/67
[2019-08-13] MEDS: HALOPERIDOL 5 MG TABLET PO PRN (16:04)
[2019-08-13] MEDS: OLANZapine 10 MG TABLET PO SCH (20:08)
[2019-08-14 04:05] VITALS: BP 102/78
[2019-08-14 08:00] VITALS: BP 109/71
[2019-08-14] MEDS: BUPRENORPHINE HCL/NALOXONE HCL 8-2 MG SUBLINGUAL TABLET SL SCH (08:35)
[2019-08-14] MEDS: BuPROPion HCL 150 MG SR TABLET PO SCH (08:35)
[2019-08-14] MEDS: NICOTINE 21 MG/24 HOUR PATCH TD SCH (08:35)
[2019-08-14] MEDS: LORazepam 2 MG TABLET PO PRN ×2 (08:36→15:11)
[2019-08-14] MEDS: HALOPERIDOL 5 MG TABLET PO PRN ×2 (15:11→21:35)
[2019-08-14 16:00] VITALS: BP 128/79
[2019-08-14] MEDS: OLANZapine 10 MG TABLET PO SCH (20:19)
[2019-08-14] MEDS: ZOLPIDEM TARTRATE 10 MG TABLET PO PRN (21:35)
[2019-08-15 00:30] VITALS: BP 121/81
[2019-08-15 08:00] VITALS: BP 119/80
[2019-08-15] MEDS: BuPROPion HCL 150 MG SR TABLET PO SCH (08:50)
[2019-08-15] MEDS: BUPRENORPHINE HCL/NALOXONE HCL 8-2 MG SUBLINGUAL TABLET SL SCH (08:50)
[2019-08-15] MEDS: NICOTINE 21 MG/24 HOUR PATCH TD SCH (08:51)
[2019-08-15] MEDS: LORazepam 2 MG TABLET PO PRN ×3 (09:51→20:59)
[2019-08-15] MEDS: HALOPERIDOL 5 MG TABLET PO PRN ×2 (16:21→21:01)
[2019-08-15 19:42] VITALS: BP 121/62
[2019-08-15] MEDS: ZOLPIDEM TARTRATE 10 MG TABLET PO PRN (19:56)
[2019-08-15] MEDS: OLANZapine 10 MG TABLET PO SCH (20:03)
[2019-08-16] MEDS: HALOPERIDOL 5 MG TABLET PO PRN ×2 (01:10→17:27)
[2019-08-16 01:13] VITALS: BP 113/59
[2019-08-16] MEDS: NICOTINE 21 MG/24 HOUR PATCH TD SCH (08:18)
[2019-08-16] MEDS: BuPROPion HCL 150 MG SR TABLET PO SCH (08:18)
[2019-08-16] MEDS: BUPRENORPHINE HCL/NALOXONE HCL 8-2 MG SUBLINGUAL TABLET SL SCH (08:19)
[2019-08-16] MEDS: LORazepam 2 MG TABLET PO PRN ×2 (08:20→17:27)
[2019-08-16 08:30] VITALS: BP 124/72
[2019-08-16 17:12] VITALS: BP 119/81
[2019-08-16] MEDS: OLANZapine 10 MG TABLET PO SCH (20:20)
[2019-08-16] MEDS: ZOLPIDEM TARTRATE 10 MG TABLET PO PRN (20:21)
[2019-08-17] MEDS: BUPRENORPHINE HCL/NALOXONE HCL 8-2 MG SUBLINGUAL TABLET SL SCH (07:59)
[2019-08-17 08:00] VITALS: BP 145/74
[2019-08-17] MEDS: BuPROPion HCL 150 MG SR TABLET PO SCH (08:00)
[2019-08-17] MEDS: NICOTINE 21 MG/24 HOUR PATCH TD SCH (08:00)
[2019-08-17] MEDS: LORazepam 2 MG TABLET PO PRN ×2 (08:00→16:25)
[2019-08-17 16:00] VITALS: BP 138/68
[2019-08-17] MEDS: HALOPERIDOL 5 MG TABLET PO PRN (16:25)
[2019-08-17] MEDS: OLANZapine 10 MG TABLET PO SCH (20:03)
[2019-08-17] MEDS: ZOLPIDEM TARTRATE 10 MG TABLET PO PRN (20:03)
[2019-08-18] MEDS: NICOTINE 21 MG/24 HOUR PATCH TD SCH (08:25)
[2019-08-18] MEDS: BuPROPion HCL XL 150 MG ER TABLET PO SCH (08:25)
[2019-08-18] MEDS: BUPRENORPHINE HCL/NALOXONE HCL 8-2 MG SUBLINGUAL TABLET SL SCH (08:25)
[2019-08-18 08:50] VITALS: BP 123/70
[2019-08-18] MEDS: LORazepam 2 MG TABLET PO PRN ×3 (10:43→20:53)
[2019-08-18 16:00] VITALS: BP 132/63
[2019-08-18] MEDS: HALOPERIDOL 5 MG TABLET PO PRN ×2 (16:09→20:53)
[2019-08-18] MEDS: OLANZapine 10 MG TABLET PO SCH (20:51)
[2019-08-19 05:36] VITALS: BP 115/55
[2019-08-19] MEDS: BUPRENORPHINE HCL/NALOXONE HCL 8-2 MG SUBLINGUAL TABLET SL SCH (08:02)
[2019-08-19] MEDS: BuPROPion HCL XL 150 MG ER TABLET PO SCH (08:02)
[2019-08-19] MEDS: HALOPERIDOL 5 MG TABLET PO PRN ×2 (08:02→20:39)
[2019-08-19] MEDS: NICOTINE 21 MG/24 HOUR PATCH TD SCH (08:04)
[2019-08-19 09:26] VITALS: BP 140/83
[2019-08-19] MEDS: LORazepam 2 MG TABLET PO PRN (16:59)
[2019-08-19 18:39] VITALS: BP 121/74
[2019-08-19] MEDS: ZOLPIDEM TARTRATE 10 MG TABLET PO PRN (20:39)
[2019-08-19] MEDS: OLANZapine 10 MG TABLET PO SCH (20:39)
[2019-08-20 07:44] LABS: ALANINE AMINOTRANSFERASE 878 U/L (12-78); ALBUMIN 3.7 g/dL (3.4-5.0); ALKALINE PHOSPHATASE 104 U/L (46-116); ANION GAP 8 mmol/L (8-16); ASPARTATE AMINOTRANSFERASE 358 U/L (15-37); BILIRUBIN,TOTAL 0.6 mg/dL (0.1-1.0); CARBON DIOXIDE 28 mmol/L (22-29); CHLORIDE 103 mmol/L (98-107); CREATININE 0.96 mg/dL (0.60-1.30); GLOMERULAR FILTR. RATE CALC > 60 mL/min (>60); GLUCOSE,RANDOM 156 mg/dL (70-110); POTASSIUM 3.9 mmol/L (3.5-5.1); SODIUM SERUM 139 mmol/L (136-145); TOTAL PROTEIN, SERUM 6.9 g/dL (6.4-8.2); UREA NITROGEN, BLOOD 17 mg/dL (7-18)
[2019-08-20 08:00] VITALS: BP 122/70
[2019-08-20] MEDS: BuPROPion HCL XL 150 MG ER TABLET PO SCH (08:33)
[2019-08-20] MEDS: BUPRENORPHINE HCL/NALOXONE HCL 8-2 MG SUBLINGUAL TABLET SL SCH (08:33)
[2019-08-20] MEDS: HALOPERIDOL 5 MG TABLET PO PRN (08:33)
[2019-08-20] MEDS: NICOTINE 21 MG/24 HOUR PATCH TD SCH (08:33)
[2019-08-20] MEDS ORDERED: BUPR-47 PO (09:14)
[2019-08-20] MEDS ORDERED: OLAN10TA3 PO (09:16)
[2019-08-20] MEDS ORDERED: NICO-704 TD (09:17)
== END 2019-08-20 09:55 | disposition home or self-care (01) | DRG 885 ==
LOC: EMS 19:22 → 3EI 23:07
PROVIDERS: ADMIT Psychiatry & Neurology Psychiatry
DX: F25.1 Schizoaffective disorder, depressive type (principal); F11.20 Opioid dependence, uncomplicated; R45.851 Suicidal ideations; Z59.0 Homelessness; F32.9 Major depressive disorder, single episode, unspecified; F17.210 Nicotine dependence, cigarettes, uncomplicated; I10 Essential (primary) hypertension; F19.10 Other psychoactive substance abuse, uncomplicated; F41.9 Anxiety disorder, unspecified; K59.00 Constipation, unspecified; G47.00 Insomnia, unspecified; Z79.899 Other long term (current) drug therapy; F15.90 Other stimulant use, unspecified, uncomplicated
CPT/HCPCS: 80074; 87081; G0480; Q0162

== ENCOUNTER 2024-07-04 16:13 | Emergency (ER) | payer MEDICARE, OTHER ==
[~2024-07-04] VITALS: Ht 177.8 cm; Wt 97.7 kg
[~2024-07-04 16:13] MED LIST changes: -BUPR-47 PO; +BUPR-49 PO; +BUPR1FIL3 SL; +NICO-803 TD; -OLAN10TA20 PO; +OLAN10TA74 PO
[2024-07-04 17:08] LABS: COVID AG,FIA SOURCE NASAL SWAB
[2024-07-04 17:19] LABS: BASOPHILS % (AUTO) 0.7 % (0.0-2.0); EOSINOPHILS % (AUTO) 0.8 % (1.0-6.0); HEMATOCRIT 45.3 % (41-53); HEMOGLOBIN 15.7 g/dL (13.5-17.5); LYMPHOCYTES # (AUTO) 1.6 K/uL (1.0-4.8); LYMPHOCYTES % (AUTO) 21.3 % (22.0-44.0); MEAN CORPUSCULAR HEMOGLOBIN 28.6 pg (26.0-34.0); MEAN CORPUSCULAR HGB CONC 34.6 G/dL (31.0-37.0); MEAN CORPUSCULAR VOLUME 83 fL (80-100); MONOCYTES # (AUTO) 0.5 K/uL (0.1-1.0); MONOCYTES % (AUTO) 6.7 % (2.0-9.0); NEUTROPHILS # (AUTO) 5.4 K/uL (1.8-7.7); NEUTROPHILS % (AUTO) 70.5 % (40.0-70.0); PLATELET COUNT (AUTO) 223 K/uL (150-450); RED BLOOD CELL COUNT(AUTO) 5.49 MIL/uL (4.50-5.90); RED CELL DISTRIBUTION WIDTH 13.1 % (11.5-14.5); WHITE BLOOD COUNT (AUTO) 7.7 K/uL (4.5-11.0)
[2024-07-04 17:25] LABS: ANION GAP 10 mmol/L (8-16); CALCIUM, TOTAL 9.3 mg/dL (8.8-10.5); CARBON DIOXIDE 23 mmol/L (22-29); CHLORIDE 102 mmol/L (98-107); CREATININE 0.86 mg/dL (0.60-1.30); GLOMERULAR FILTR. RATE CALC > 60 mL/min (>60); GLUCOSE,RANDOM 104 mg/dL (70-110); POTASSIUM 3.7 mmol/L (3.5-5.1); SODIUM SERUM 135 mmol/L (136-145); UREA NITROGEN, BLOOD 8 mg/dL (7-18)
[2024-07-04 17:28] LABS: SARS-COV2 (COVID) ANTIGEN,FIA Negative (Negative)
[2024-07-04 18:12] LABS: APPEARANCE,URINE CLEAR (CLEAR); BILIRUBIN,URINE NEGATIVE (NEGATIVE); COLOR,URINE COLORLESS (YELLOW); GLUCOSE, URINE (UA) NEGATIVE (NEGATIVE); KETONES,URINE TRACE mg/dL (NEGATIVE); LEUKOCYTE ESTERASE ,URINE NEGATIVE (NEGATIVE); NITRATE,URINE NEGATIVE (NEGATIVE); OCCULT BLOOD,URINE NEGATIVE (NEGATIVE); PH,URINE 5.5 (5.0-8.0); PH,URINE DRUG SCREEN 5.5 (5.0-8.0); PROTEIN,URINE NEGATIVE (NEGATIVE); SPECIFIC GRAVITIY, URINE 1.004 (1.003-1.030); UROBILINOGEN,URINE <=1.0 mg/dL (<=1.0)
[2024-07-04 18:21] LABS: ALCOHOL, URINE DRUG SCREEN NEGATIVE (NEGATIVE); AMPHET/METH SCREEN,URINE POSITIVE (NEGATIVE); BARBITURATE SCREEN, URINE NEGATIVE (NEGATIVE); BENZODIAZEPINES SCREEN,URINE NEGATIVE (NEGATIVE); CANNABINOID SCREEN,URINE NEGATIVE (NEGATIVE); COCAINE SCREEN,URINE NEGATIVE (NEGATIVE); METHADONE SCREEN, URINE NEGATIVE (NEGATIVE); OPIATE SCREEN,URINE NEGATIVE (NEGATIVE); PHENCYCLIDINE SCREEN,URINE NEGATIVE (NEGATIVE)
[2024-07-04 18:26] VITALS: TEMP 98.1
[2024-07-04] MEDS: ACETAMINOPHEN/CODEINE 300-30 MG TABLET PO ONE (19:29)
[2024-07-04 20:51] VITALS: BP 136/95; PULSE 84; RESP 18; O2SAT 100
[2024-07-04] MEDS: GuaiFENesin [SUGAR-FREE] 200 MG/10 ML SOLUTION UDCUP PO ONE (20:52)
== END 2024-07-04 21:00 | disposition admitted as inpatient to this hospital (09) ==
LOC: EMS 16:13
DX: F20.9 Schizophrenia, unspecified (principal); F15.10 Other stimulant abuse, uncomplicated; R45.851 Suicidal ideations; I11.0 Hypertensive heart disease with heart failure; I50.9 Heart failure, unspecified; F17.210 Nicotine dependence, cigarettes, uncomplicated; Z79.899 Other long term (current) drug therapy; Z20.822 Contact with and (suspected) exposure to COVID-19
CPT/HCPCS: 99285; 71045; 87426; 80048; 85025; 36415; 80307; 81003; G0480